=== PATIENT | male | born 1985 | race Two or more races ===

== ENCOUNTER 2021-02-04 11:58 | Emergency (ER) | payer BC, OTHER ==
[~2021-02-04] VITALS: Ht 177.8 cm; Wt 103.0 kg
--- NOTE | 2021-02-04 12:42 | NUR ---
THE PATIENT BIBS LEFT SHOULDER AND LEFT SIDED RIBCAGE PAIN,S/P FALL FROM LADDER,5 FT. RATES PAIN 5/10. WILL CONTINUE TO MONITOR THE PATIENT
[2021-02-04] MEDS ORDERED: IBUPROFEN 600 MG TABLET PO ONE (13:00)
[2021-02-04] MEDS ORDERED: IBUP-1957 PO (13:35)
[2021-02-04] MEDS ORDERED: IBUPROFEN 600 MG TABLET ONE (13:43)
[2021-02-04 13:51] VITALS: BP 114/63
--- NOTE | 2021-02-04 13:51 | NUR ---
Patient discharged to home in stable condition. Written and verbal after care instructions given. Patient verbalizes understanding of instruction.
== END 2021-02-04 13:52 | disposition home or self-care (01) ==
LOC: ER 12:11
DX: S46.812A Strain of other muscles, fascia and tendons at shoulder and upper arm level, left arm, initial encounter (principal); S20.212A Contusion of left front wall of thorax, initial encounter; W11.XXXA Fall on and from ladder, initial encounter; Y93.89 Activity, other specified; Y92.89 Other specified places as the place of occurrence of the external cause; Y99.8 Other external cause status
CPT/HCPCS: 71100-TC; 73060-TC